=== PATIENT | female | born 1960 | race Caucasian/White ===

== ENCOUNTER 2016-07-24 16:22 | Inpatient (IN) ==
[2016-07-24] MEDS ORDERED: Aspirin 81 MG TAB.CHEW PO ONE (16:28)
--- NOTE | 2016-07-24 16:37 | Emergency Department Note ---
Disposition Clinical Impression: Chest pain Qualifiers: Chest pain type: unspecified Qualified Code(s): R07.9 - Chest pain, unspecified Disposition: Admitted As Inpatient Condition: Fair Forms: ED Satisfaction Letter Time of Disposition: 17:25 Chest Pain HPI - General Chief Complaint: ED Chest Pain Stated Complaint: Chest pressure Time Seen by Provider: 07/24/16 16:27 Source: patient, EMS Mode of arrival: EMS Limitations: no limitations Vital Signs Reviewed: Yes Nursing Notes Reviewed: Yes - History of Present Illness HPI Narrative: 56-year-old female comes in complaining of chest pain. Patient describes it as a pressure-like chest pain like someone sitting on her chest. Patient has no history of cardiac disease. She does have cardiac risk factors of elevated cholesterol, hypertension, diabetes, family history. She's not had a recent workup of her heart. [facility]. Initial troponin was negative. Pt complaint: chest pain Onset (ago): Just DRAFTER (CAD) ELECTRICAL Duration: constant Onset: during rest, during exertion Pain Location: substernal, left chest Severity: moderate Severity scale (1-10): 5 Quality: aching, heaviness Pain Radiation: none Improves with: nitroglycerin Worsens with: nothing - Related Data Allergies Allergy/AdvReac Type Severity Reaction Status Date / Time buprenorphine [From Buprenex] Allergy Nausea Verified 04/20/15 14:30 Pneumococcal Vaccine AdvReac Rash Verified 04/20/15 14:30 Constitutional: Denies: fever, chills, weakness, weight change Eyes: Denies: eye pain, eye discharge, vision change ENT ED: Denies: ear pain, throat pain, dental pain, hearing loss, epistaxis, congestion, dysphagia Cardiovascular: Reports: chest pain. Denies: palpitations, dyspnea on exertion , edema, syncope Respiratory: Denies: cough, dyspnea, wheezes, hemoptysis, stridor Gastrointestinal: Denies: abdominal pain, nausea, vomiting, diarrhea, constipation, hematemesis, melena, hematochezia Genitourinary: Denies: dysuria, frequency, hematuria, discharge Musculoskeletal: Denies: back pain, neck pain, arthralgia, myalgia Integumentary: Denies: rash, abrasion, lesions Neurological: Denies: headache, weakness, numbness, paresthesias, confusion, abnormal gait, vertigo Psychiatric: Denies: anxiety, depression, suicidal thoughts, homicidal thoughts , auditory hallucinations, visual hallucinations Endocrine: Denies: fatigue Hematological/Lymphatic: Denies: easy bleeding, easy bruising Allergic/Immunologic: Denies: facial swelling, urticaria Chest Pain PMH - Past Medical History Medical history: Reports: other Surgical history: Reports: , cholecystectomy, herniorrhaphy, other Psychiatric history: Reports: anxiety - Social History Smoking Status: Never smoker Alcohol use: Reports: none Drug use: Reports: none Physical Exam - General Limitations: no limitations General appearance: alert, in no apparent distress - Head Head exam: atraumatic, normocephalic, normal inspection - Eye Eye exam: Present: normal appearance, PERRL, EOMI - ENT ENT exam: normal exam, normal oropharynx, mucous membranes moist - Neck Neck exam: Present: normal inspection, full ROM, trachea midline - Chest Chest inspection: Present: normal inspection, symmetric chest wall rise - Respiratory Respiratory exam: Present: normal lung sounds bilaterally - Cardiovascular Cardiovascular exam: Present: regular rate, normal rhythm, normal heart sounds - Abdominal Exam Abdominal exam: Present: soft, Non-Tender. Absent: tenderness, distention, guarding, rebound, rigidity - Extremities Exam Extremities exam: Present: normal inspection, full ROM. Absent: tenderness, pedal edema - Expanded Lower Extremity Exam Neurovascular/Tendon exam: Absent: motor deficit, sensory deficit, tendon deficit Gait: not tested/not observed - Back Exam Back exam: Present: normal inspection, full ROM. Absent: tenderness - Neurological Exam Neurological exam: Present: alert, oriented X3 - Psychiatric Psychiatric exam: Present: normal affect, normal mood - Skin Skin exam: Present: warm, dry, intact, normal color Course - Reevaluation(s) Reevaluation #1: This is a patient who comes in complaining of chest pain feels like something sitting on her chest. Patient does have multiple risk factors and no recent workup. Patient will be admitted for evaluation. Time: 17:25 - Consultations Consultation #1: Discussed with , sejal. Time: 17:23 Vital Signs Temperature 98.4 F 07/24/16 16:26 Pulse Rate 83 07/24/16 16:26 Respiratory Rate 16 07/24/16 16:26 Blood Pressure 128/84 07/24/16 16:26 O2 Sat by Pulse Oximetry 93 L 07/24/16 16:26 Temperature 98.4 F 07/24/16 16:26 Pulse Rate 83 07/24/16 16:26 Respiratory Rate 16 07/24/16 16:26 Blood Pressure 128/84 07/24/16 16:26 O2 Sat by Pulse Oximetry 94 L 07/24/16 16:31 Oxygen Delivery Oxygen Delivery Room Air Chest Pain - Lab Data Result diagrams: 07/24/16 16:56 07/24/16 16:56 Lab Results 07/24/16 07/24/16 07/24/16 Range/Units 16:56 16:56 16:56 WBC 10.3 (4.3-11.1) K/mcL RBC 4.70 (3.82-4.97) M/mcL Hgb 14.0 (11.5-15.4) g/dL Hct 42.8 (35.3-44.9) % MCV 91.1 (83.0-100.0) fL MCH 29.8 (28.0-33.3) pg MCHC 32.7 (31.6-35.5) g/dL RDW 12.3 (11.5-14.5) % Plt Count 247 (140-400) K/mcL MPV 8.8 L (9.4-12.4) fL Immature Gran % 0.8 (0-4) % Seg Neutrophils % 54.1 % Lymphocytes % 33.2 % Monocytes % 10.3 % Eosinophils % 1.2 % Basophils % 0.4 % Neutrophils # 5.6 (1.6-8.9) K/mcL Lymphocytes # 3.4 (0.6-4.6) K/mcL Monocytes # 1.1 (0.0-1.3) K/mcL Eosinophils # 0.1 (0.0-0.6) K/mcL Basophils # 0.0 (0.0-0.2) K/mcL PT 10.3 (9.4-12.1) Seconds INR 1.0 APTT 26.6 (26.0-36.0) Seconds Sodium 140 (136-145) mEq/L Potassium 3.8 (3.5-4.5) mEq/L Chloride 102 (98-109) mEq/L Carbon Dioxide 29 (19-29) mEq/L BUN 14 (7-20) mg/dL Creatinine 0.84 (0.57-1.11) mg/dL Est GFR ( Amer) > 60 (> 60) Est GFR (Non-Af Amer) > 60 (> 60) BUN/Creatinine Ratio 17 (6-26) Glucose 85 (70-99) mg/dL Calculated Osmolality 290 (280-300) Calcium 9.9 (8.6-10.8) mg/dL Heart Score - Score History: Moderately Suspicious EKG: Non Specific repolarisation Disturbance Age: 45-65 Risk Factors: Equal/Greater than 3 risk factor or history of atherosclerotic disease Troponin: Less than normal limit HEART Score Total: 5
[2016-07-24 17:02] LABS: Basophils % 0.4 %; Eosinophils # 0.1 K/mcL (0.0-0.6); Eosinophils % 1.2 %; Hematocrit 42.8 % (35.3-44.9); Immature Granulocytes % 0.8 % (0-4); Lymphocytes # 3.4 K/mcL (0.6-4.6); Lymphocytes % 33.2 %; Mean Corpuscular HGB Conc 32.7 g/dL (31.6-35.5); Mean Corpuscular Hemoglobin 29.8 pg (28.0-33.3); Mean Corpuscular Volume 91.1 fL (83.0-100.0); Mean Platelet Volume 8.8 fL (9.4-12.4); Monocytes # 1.1 K/mcL (0.0-1.3); Monocytes % 10.3 %; Neutrophils # 5.6 K/mcL (1.6-8.9); Platelet Count 247 K/mcL (140-400); Red Cell Distribution Width 12.3 % (11.5-14.5); Segmented Neutrophils % 54.1 %
[2016-07-24 17:08] LABS: Prothrombin Time 10.3 Seconds (9.4-12.1)
[2016-07-24 17:10] LABS: Activated Partial Thrombo Time 26.6 Seconds (26.0-36.0)
[2016-07-24] MEDS ORDERED: Nitroglycerin 1 INCH/GM PACKET TP ONE (17:14)
[2016-07-24 17:18] LABS: BUN/Creatinine Ratio 17 (6-26); Blood Urea Nitrogen 14 mg/dL (7-20); Calcium 9.9 mg/dL (8.6-10.8); Carbon Dioxide 29 mEq/L (19-29); Chloride 102 mEq/L (98-109); Glucose 85 mg/dL (70-99); Osmolality,Calculated 290 (280-300); Potassium 3.8 mEq/L (3.5-4.5); Sodium 140 mEq/L (136-145); eGFR For African Americans > 60 (> 60); eGFR For Non-African Americans > 60 (> 60)
[2016-07-24] MEDS ORDERED: *HR* Morphine 2 MG/ML SYRINGE IVP PRN (18:17)
[2016-07-24] MEDS ORDERED: Acetaminophen 325 MG TABLET PO PRN (18:17)
[2016-07-24] MEDS ORDERED: Naloxone 0.4 MG/ML INJ IVP PRN (18:17)
[2016-07-24] MEDS ORDERED: Ondansetron 4 MG/2 ML VIAL IVP PRN (18:17)
[2016-07-24] MEDS ORDERED: D5% in Water 1,000 ML IV PRN (18:21)
[2016-07-24] MEDS ORDERED: *HR* Dextrose 50 % in Water (Syg) 50 ML SYRINGE IVP PRN (18:21)
[2016-07-24] MEDS ORDERED: Dextrose Gel 15 GM PO PRN ×2 (18:21)
[2016-07-24] MEDS ORDERED: Ketorolac 30 MG/ML VIAL IVP ONE (18:26)
--- NOTE | 2016-07-24 18:29 | Internal Med History&Physical ---
Date of Encounter: 07/24/16 Time of Encounter: 17:30 Internal Medicine - H&P: HPI Chief complaint: pressure on chest since 2:00pm Admitted From: Hospital to Hospital Transfer Plans for Post Hospital Care: Home History of present illness: Ms. Henderson is a 56 year old female without CAD diagnosis, but with multiple cardiovascular risk factors ( HLD, HTN), esophageal spasms and anxiety disorder , presents with sub-sternal pressure-like chest pain, she reports that it feels like someone is sitting on her chest. The symptom started 30 minutes after a meal of cheese burger, while she was moving rather heavy objects in her storage (she says she was looking for an item) comes in complaining of chest pain. Patient describes it as a pressure-like chest pain like someone sitting on her chest. It is associated with SOB. She did not report wheezing, NO OTHER ACUTE ASSOCIATED SYMPTOMS. She agrees to chronic exertional SOB, no PND or orthopnea, no leg swelling, no calf pain, no recent long distance travel. She has had a chronic cough for 6 weeks, her PCP thinks it is related to allegies, she is looking forward to be evaluated by an geotechnicial properties technician in the coming week. She reports she has had similar chest pain-pressure in the past, but not this severe. She was concerned for heart attack so she went to the [facility], there she was given sublingual nitroglycerin, she reports marginal improvement in her pain. The [facility] did not have a cardiac bed, hence referred her to [facility] for cardiac work-up. Patient has no history of cardiac disease. She reports a negative stress test a couple of years ago, she reports she was asymptomatic at that time , the test was completed as part of routine work-up. She's not had a recent workup of her heart. She is FULL CODE as per discussion, she nominates her father, Myke Laughlin ([phone]) as her NOK/POA. Medical history: Reports: DM2, esophageal spasm, HLD, HTN, asthma Surgical history: Reports: , cholecystectomy, herniorrhaphy, other Psychiatric history: Reports: severe anxiety, depression, GERD, RLS Smoking Status: Never smoker Alcohol use: Reports: none Drug use: Reports: none Family history: Father: non-premature CAD with PCI, sister DM2 ROS: A 10-point ROS was performed, positives and relevant negatives are detailed , system-symptoms not mentioned is assumed negative unless otherwise stated. Vital Signs Temperature 98.4 F 07/24/16 16:26 Pulse Rate 83 07/24/16 16:26 Respiratory Rate 16 07/24/16 16:26 Blood Pressure 128/84 07/24/16 16:26 O2 Sat by Pulse Oximetry 93 L 07/24/16 16:26 Temperature 98.4 F 07/24/16 16:26 Pulse Rate 83 07/24/16 16:26 Respiratory Rate 16 07/24/16 16:26 Blood Pressure 128/84 07/24/16 16:26 O2 Sat by Pulse Oximetry 94 L 07/24/16 16:31 O/E: Not in distress, appears very anxious HEENT: Not pale, anicteric, afebrile, acyanotic, no JND Chest: CTAB, chest pain reproduced by sternal pressure Heart: RRR, HS1/2, no murmur Abdomen: soft, non-tender, no masses. EDGE GRINDER MACHINE: AAO x 3, no gross focal neurological deficits Skin: No active skin lesion Extremities: No pedal edema, normal pedal pulses, no calf tenderness. Lab Results 07/24/16 07/24/16 07/24/16 Range/Units 16:56 16:56 16:56 WBC 10.3 (4.3-11.1) K/mcL RBC 4.70 (3.82-4.97) M/mcL Hgb 14.0 (11.5-15.4) g/dL Hct 42.8 (35.3-44.9) % MCV 91.1 (83.0-100.0) fL MCH 29.8 (28.0-33.3) pg MCHC 32.7 (31.6-35.5) g/dL RDW 12.3 (11.5-14.5) % Plt Count 247 (140-400) K/mcL MPV 8.8 L (9.4-12.4) fL Immature Gran % 0.8 (0-4) % Seg Neutrophils % 54.1 % Lymphocytes % 33.2 % Monocytes % 10.3 % Eosinophils % 1.2 % Basophils % 0.4 % Neutrophils # 5.6 (1.6-8.9) K/mcL Lymphocytes # 3.4 (0.6-4.6) K/mcL Monocytes # 1.1 (0.0-1.3) K/mcL Eosinophils # 0.1 (0.0-0.6) K/mcL Basophils # 0.0 (0.0-0.2) K/mcL PT 10.3 (9.4-12.1) Seconds INR 1.0 APTT 26.6 (26.0-36.0) Seconds Sodium 140 (136-145) mEq/L Potassium 3.8 (3.5-4.5) mEq/L Chloride 102 (98-109) mEq/L Carbon Dioxide 29 (19-29) mEq/L BUN 14 (7-20) mg/dL Creatinine 0.84 (0.57-1.11) mg/dL Est GFR ( Amer) > 60 (> 60) Est GFR (Non-Af Amer) > 60 (> 60) BUN/Creatinine Ratio 17 (6-26) Glucose 85 (70-99) mg/dL Calculated Osmolality 290 (280-300) Calcium 9.9 (8.6-10.8) mg/dL CXR: low volumes, no acute cardiopulmonary findings. EKG: NSR, non-specific repolarization abnormalities IMP Atypical chest pain, reproducible, ? musculoskeletal vs GERD/esophageal spasm, however in view of cardiovascular risk factors, I will admit for rule out, Moderate to severe anxiety episode Chronic cough, unknown etiology Chronic morbidities HTN HLD DM2 Asthma, no clear evidence of exacerbation GERD History of esophageal spasm Restless leg syndrome Anxiety disorder Depression PLAN Admit Morphine for chest pain Xanax 0.5mg po TID X 1 day Famotidine 40mg po BID first dose now. Toradol 30mg IV X 1 DOSE Albuterol neb QIDR. Cycle troponin, serial EKG, pharmacological stress test in the AM IF TROPONIN REMAIN NEGATIVE Evaluate her cardiovascular risk factors, TSH, HbA1C and fasting lipid profile. Sliding scale insulin QAC/HS, and q6h when she is NPO. Continue other medications of chronic morbidities I discussed my assessment with the patient, she is agreeable to admission. She is admitted given her multiple cardiovascular risk factors and the fact that she has been referred from a health system for the sole purpose of cardiac work- up Past Med Surg Social Fam HX - Past Medical History Medical history: other Psychiatric history: anxiety - Past Surgical History Surgical History: , cholecystectomy, herniorrhaphy, other - Social History Smoking Status: Never smoker Smokeless Tobacco Status: No Alcohol use: none Drug use: none Internal Medicine - H&P: Meds Unable To Obtain [Unable to Obtain] 07/24/16 [History] Allergies buprenorphine [From Buprenex] Allergy (Verified 04/20/15 14:30) Nausea Pneumococcal Vaccine Adverse Reaction (Verified 04/20/15 14:30) Rash All Systems PM: A 10-system review of systems was performed and is negative for pertinent findings except as documented above in the HPI. - Constitutional Vitals: Temp Pulse Resp BP Pulse Ox 98.4 F 80 16 119/71 97 07/24/16 16:26 07/24/16 17:30 07/24/16 18:12 07/24/16 18:12 07/24/16 17:30 Internal Med - H&P Results - Labs CBC & Chem 7: 07/24/16 16:56 07/24/16 16:56 - VTE Reasons for not Prescribing Prophylaxis: Treatment not Indicated - Low risk for VTE
[2016-07-24] MEDS: Famotidine 20 MG TABLET PO SCH ×2 (20:13→23:10)
[2016-07-24] MEDS: ALPRAZolam 0.5 MG TABLET PO SCH ×2 (20:13→23:10)
[2016-07-24] MEDS ORDERED: Insulin LISPRO 300 UNITS/3 ML VIAL SQ SCH (21:00)
[2016-07-24] MEDS: Albuterol 2.5 MG/3 ML NEBULIZER IH SCH (22:57)
[2016-07-25] MEDS ORDERED: traZODone 50 MG TABLET PO STA (00:18)
[2016-07-25] MEDS ORDERED: Gabapentin 300 MG CAPSULE PO STA (00:18)
[2016-07-25 04:40] LABS: Hemoglobin A1C 5.9 %
[2016-07-25 04:43] LABS: Chol/HDL Ratio 4.1 (0-4.9)
[2016-07-25] MEDS: Albuterol 2.5 MG/3 ML NEBULIZER IH SCH ×2 (05:03→10:17)
[2016-07-25 05:04] LABS: Thyroid Stimulating Hormone 1.347 mcIU/mL (0.350-4.840)
[2016-07-25] MEDS: Insulin LISPRO 300 UNITS/3 ML VIAL SQ SCH ×2 (07:21→11:40)
[2016-07-25] MEDS ORDERED: Regadenoson 0.4 MG/5 ML SYRINGE IVP ONE (07:41)
[2016-07-25] MEDS: ALPRAZolam 0.5 MG TABLET PO SCH (10:54)
[2016-07-25] MEDS: Famotidine 20 MG TABLET PO SCH (10:54)
--- NOTE | 2016-07-25 11:03 | Nuclear Medicine Stress Report ---
Regadenoson Nuclear Stress Name: ALEM ROJAS Date of Study: 07/25/2016 Date: 1960 Ht: 62.0 in Medical Record#: [id number] Age: 56 Wt: 179.0 lb Gender: Female Order #: [id number] Location: [facility] Room: [facility] Supervising Provider: Shruti Medina CNP Reading Physician: Hema Harrison DO, ROMULO, ANTONIO GARCIA Ordering Physician: Deena Whitney CNP Primary Care Physician: [facility] Stress Technologist: Earl Aguirre, SKILLED NURSING PROFESSIONAL, CCT Process Server: Bryce Rodriguez Indications: Chest pain Impression: Pharmacologic stress ECG is negative for ischemia. Patient reported chest discomfort during stress. This is a nonspecific finding with Lexiscan. Gated EF = 73%. Perfusion imaging was negative for ischemia or infarct. History: Hypertension Diabetes Hypercholesteremia Stress Test Summary: Stress Test Type: Pharmacologic Regadenoson 0.4mg/5ml given IV Baseline Information: Initial Heart Rate: 88 Blood Pressure: 112/78 Stress Information: Stress Time: 4 min 00 sec Test Terminated Due to (primary): Completed Protocol Maximum Blood Pressure: 140/90 Maximum Heart Rate: 141 Percent Maximum Heart Rate Achieved: 87 Double Product: 19,740 METS Reached: 1 Symptoms: Chest pain, Lightheadness, Flushing Nuclear Summary: SPECT myocardial perfusion imaging using Tc99m Sestamibi given intravenously was performed at rest and following cardiac stress testing. The resting images were obtained following initial dose of 10.6 mCi. Following stress an additional dose of 31.3 mCi was given at peak exercise or 30 seconds post regadenoson infusion. Medication Given: Time Medication Dose Units Route Findings: Stress Note * Resting ECG demonstrated normal sinus rhythm. * No baseline arrhythmias were noted. * Pharmacologic stress ECG is negative for ischemia. * No arrhythmias were noted during stress. Occasional PVCs noted in recovery. * Patient reported chest discomfort during stress. This is a nonspecific finding with Lexiscan. * Normal hemodynamic responses to pharmacologic stress. Study Quality * Study quality is average. Gated EF % * Gated EF = 73%. Left Ventricle * The left ventricle is not dilated. LVEDV = 60 mL. NORMALS * Normal wall motion. * Normal segmental perfusion in stress. * Normal Segmental Perfusion in rest. TID * No evidence of transient ischemic dilatation. TID ratio = 1.10. Lung Uptake * There is no evidence of increase lung uptake. Updated by Hema Harrison DO, FACLinn, JOSE, FASJOSSUE on 07/25/2016 10:57:18 AM electronically signed on 07/25/2016 11:00:14 AM with status of Final
[2016-07-25 11:37] VITALS: BP 109/74
--- NOTE | 2016-07-25 11:48 | Discharge Summary ---
Date of Encounter: 07/25/16 Time of Encounter: 10:45 - Discharge Diagnosis (1) Chest wall pain Priority: Primary Status: Acute (2) Anxiety Priority: Primary Status: Acute (3) Chest pain Priority: Primary Status: Acute Qualifiers: Chest pain type: unspecified Qualified Code(s): R07.9 - Chest pain, unspecified - Discharge Medications Prescriptions: Famotidine [Pepcid] 40 mg PO BID 14 Days Naproxen Sodium [Aleve] 440 mg PO BID 7 Days Nitroglycerin 0.4 mg SL Q5-10MIN PRN #30 tab.subl PRN Reason: Chest Pain Home Medications: Atorvastatin [Lipitor] 40 mg PO HS 07/24/16 [History] Buspirone HCl [Buspar] 10 mg PO BID 07/24/16 [History] Cholecalciferol (Vitamin D3) [Vitamin D3] 2,000 unit PO DAILY 07/24/16 [History] Dicyclomine [Bentyl] 20 mg PO TID 07/24/16 [History] Gabapentin [Neurontin] 300 mg PO TID 07/24/16 [History] Magnesium Oxide [Magnesium] 400 mg PO DAILY 07/24/16 [History] Metformin [Glucophage] 1,000 mg PO BIDWM 07/24/16 [History] Metoprolol Succinate 12.5 mg PO DAILY 07/24/16 [History] Montelukast [Singulair] 10 mg PO DAILY 07/24/16 [History] Multivit-Min/FA/Lycopen/Lutein [Adults 50+ Multivitamin Tablet] 1 tab PO DAILY 07/24/16 [History] Paroxetine HCl [Paroxetine] 40 mg PO DAILY 07/24/16 [History] SUMAtriptan Succinate [Imitrex] 100 mg PO DAILY PRN 07/24/16 [History] Symbicort 80/4.5 1 puff IH BID 07/24/16 [History] Trazodone HCl 50 mg PO HS 07/24/16 [History] Famotidine [Pepcid] 40 mg PO BID 14 Days 07/25/16 [Rx] Naproxen Sodium [Aleve] 440 mg PO BID 7 Days 07/25/16 [Rx] Nitroglycerin 0.4 mg SL Q5-10MIN PRN #30 tab.subl 07/25/16 [Rx] Allergies/Adverse Reactions: Allergies buprenorphine [From Buprenex] Allergy (Verified 04/20/15 14:30) Nausea Pneumococcal Vaccine Adverse Reaction (Verified 04/20/15 14:30) Rash Procedures/tests Complete & Pending: Procedures Performed prior 72 hours Category Date Time Status SP pharm nuclear stress Routine Y 07/25/16 Completed Date of admission: 07/25/16 01:08 [facility] care physician: [facility] Consults: None Discharging clinician: Wilberto Biswas Anticipated date of discharge: 07/25/16 - Patient Status Disposition: Home, Self-Care Condition: Good Overall status at discharge: patient is progressing back to baseline - Discharge Instructions Instructions: Chest Pain (DC) Follow Up With: [facility],PCP [Primary Care Provider] - - Diet and Activity Activity: resume usual activities as tolerated Diet: diabetic diet Interval History: Basic cardiac work-up is negative thus far. Troponin remain normal, non- ischemic pharmacological stress test. Hospital course: Ms. Henderson is a 56 year old female without CAD diagnosis, but with multiple cardiovascular risk factors ( HLD, HTN), esophageal spasms and anxiety disorder , presents with sub-sternal pressure-like chest pain, she reports that it feels like someone is sitting on her chest. The symptom started 30 minutes after a meal of cheese burger, while she was moving rather heavy objects in her storage (she says she was looking for an item) comes in complaining of chest pain. Patient describes it as a pressure-like chest pain like someone sitting on her chest. It is associated with SOB. Cardiac work up was negative. Troponin remain normal. Serial EKG shows no acute changes. Pharmacological stress test was non- ischemic, though she complained to some chest pain during stress test. At discharge O/E: Not in distress, still appears anxious HEENT: Not pale, anicteric, afebrile, acyanotic, no JND Chest: CTAB, chest pain reproduced by sternal pressure Heart: RRR, HS1/2, no murmur Abdomen: soft, non-tender, no masses. CONTROL CLERK AUDITING: AAO x 3, no gross focal neurological deficits Skin: No active skin lesion Extremities: No pedal edema, normal pedal pulses, no calf tenderness. IMP Atypical chest pain Chest wall pain related to recent activity Anxiety about symptom, further complication perception of symptoms History of esophageal spasm PLAN Famotidine 40mg po BID X 14 days Aleve 440 mg po BID Sublingual nitroglycerine. F/U with PCP. - Time Spent with Patient Total time spent providing and/or coordinating discharge services: - Constitutional Vitals: Temp Pulse Resp BP Pulse Ox 97.7 F 84 16 109/74 91 L 07/25/16 11:36 07/25/16 11:36 07/25/16 11:36 07/25/16 11:36 07/25/16 11:36 - VTE Reasons for not Prescribing Prophylaxis: Treatment not Indicated - Low risk for VTE
--- NOTE | 2016-07-25 20:03 | Electrocardiograph Report ---
[facility] Test Date: 2016-07-24 Pat Name: Laxmi Henderson Department: 105 Room: 3B44 Gender: F Dietary Worker: WESLEY : 1960 Requested By: Augie Hernandez Order Number: [id number] Reading MD: Hema Harrison DO Measurements Intervals [place] Rate: 80 P: 36 TN: 169 QRS: 92 QRSD: 93 T: 46 QT: 361 QTc: 397 Interpretive Statements Sinus rhythm Rightward axis Electronically Signed On 07-25-16 20:02:39 EST by Hmea Harrison DO
== END 2016-07-25 13:04 | disposition home or self-care (01) | DRG 313 ==
LOC: EMEROO 16:22 → 3BNU 16:22
PROVIDERS: ADMIT Nurse Practitioner Family; ATTEND Nurse Practitioner Family

== ENCOUNTER 2020-10-14 20:36 | Observation (INO) ==
[2020-10-14] MEDS ORDERED: Naloxone 0.4 MG/ML INJ IVP PRN (22:34)
[2020-10-14] MEDS ORDERED: Acetaminophen 325 MG TABLET PO PRN (22:34)
[2020-10-14] MEDS ORDERED: Melatonin 3 MG TABLET PO PRN (22:34)
[2020-10-14] MEDS ORDERED: Ondansetron 4 MG/2 ML VIAL IVP PRN (22:34)
[2020-10-15 06:21] LABS: Basophils # 0.1 K/mcL (0.0-0.2); Basophils % 0.7 %; Eosinophils # 0.2 K/mcL (0.0-0.6); Eosinophils % 2.2 %; Immature Granulocytes % 0.4 % (0-4); Lymphocytes # 1.9 K/mcL (0.6-4.6); Lymphocytes % 28.8 %; Mean Corpuscular HGB Conc 32.5 g/dL (31.6-35.5); Mean Corpuscular Hemoglobin 29.8 pg (28.0-33.3); Mean Corpuscular Volume 91.7 fL (83.0-100.0); Mean Platelet Volume 9.9 fL (9.4-12.4); Monocytes # 0.7 K/mcL (0.0-1.3); Monocytes % 9.9 %; Neutrophils # 3.9 K/mcL (1.6-8.9); Platelet Count 184 K/mcL (140-400); Red Blood Count 4.36 M/mcL (3.82-4.97); Red Cell Distribution Width 12.2 % (11.5-14.5); White Blood Count 6.7 K/mcL (4.3-11.1)
[2020-10-15 06:26] LABS: Prothrombin Time 11.5 Seconds (9.4-12.1)
[2020-10-15] MEDS ORDERED: D5% in Water 1,000 ML IVC PRN (06:32)
[2020-10-15] MEDS ORDERED: Dextrose Gel 15 GM/37.5 ML TUBE PO PRN ×2 (06:32)
[2020-10-15] MEDS ORDERED: *HR* Dextrose 50 % in Water (Vial) 50 ML VIAL IVP PRN (06:32)
[2020-10-15] MEDS ORDERED: Regadenoson 0.4 MG/5 ML SYRINGE IVP ONE (06:42)
[2020-10-15] MEDS ORDERED: Nitroglycerin 0.4 MG TAB.SUBL SL PRN (06:43)
[2020-10-15 06:44] LABS: Alanine Aminotransferase 20 Units/L (7-52); Albumin/Globulin Ratio 1.7 (1.1-2.2); Alkaline Phosphatase 41 Units/L (34-104); Aspartate Amino Transferase 18 Units/L (13-39); BUN/Creatinine Ratio 16 (6-26); Bilirubin,Total 0.5 mg/dL (0.3-1.0); Blood Urea Nitrogen 14 mg/dL (8-23); Calcium 9.1 mg/dL (8.6-10.3); Carbon Dioxide 28 mEq/L (23-29); Chloride 105 mEq/L (98-107); Globulin 2.3 g/dL (2.4-3.5); Glucose 130 mg/dL (70-105); Osmolality,Calculated 288 (280-300); Phosphorous 2.7 mg/dL (2.7-4.5); Potassium 4.1 mEq/L (3.5-5.1); Sodium 138 mEq/L (136-145); Total Protein 6.3 g/dL (6.4-8.9); eGFR For African Americans > 60 (> 60); eGFR For Non-African Americans > 60 (> 60)
[2020-10-15] MEDS ORDERED: SUMAtriptan succinate 50 MG TABLET PO ONE (10:11)
[2020-10-15 11:49] VITALS: BP 115/74
[2020-10-15] MEDS ORDERED: Insulin LISPRO 300 UNITS/3 ML VIAL SUBQ SCH (12:00)
[2020-10-15] MEDS ORDERED: *HR* Heparin 5,000 UNIT/ML VIAL SQ SCH (18:00)
== END 2020-10-15 15:02 | disposition home or self-care (01) ==
LOC: 3BNU → SUATTDRO 22:17
PROVIDERS: ADMIT Internal Medicine; ATTEND Registered Nurse